=== PATIENT | male | born 2000 | race Caucasian/White ===

== ENCOUNTER 2022-08-09 11:54 | Emergency (ER) | payer MEDICAID ==
[~2022-08-09] VITALS: Ht 170.2 cm; Wt 72.7 kg
--- NOTE | 2022-08-09 13:00 | NUR ---
DR SARMIENTO AT BEDSIDE.
[2022-08-09 13:23] LABS: BASOPHILS % (AUTO) 0.5 % (0-1); EOSINOPHILS % (AUTO) 0.2 % (0-6); HEMOGLOBIN 14.5 g/dl (14.0-17.9); LYMPHOCYTES # (AUTO) 0.9 X10'3 (1.1-4.8); LYMPHOCYTES % (AUTO) 13.4 % (21-51); MEAN CORPUSCULAR HEMOGLOBIN 29.5 PG (27.0-31.0); MEAN CORPUSCULAR HGB CONC 33.6 g/dL (33.0-36.5); MEAN PLATELET VOLUME 8.8 FL (7.4-10.4); MONOCYTES # (AUTO) 0.3 X10'3 (0-0.9); MONOCYTES % (AUTO) 4.5 % (2-12); NEUTROPHILS # (AUTO) 5.8 X10'3 (1.8-7.7); NEUTROPHILS % (AUTO) 81.4 % (42-75); PLATELET COUNT 175 X10'3 (140-440); RED BLOOD COUNT 4.89 X10'6 (4.70-6.10); RED CELL DISTRIBUTION WIDTH 14.3 % (11.5-14.5); WHITE BLOOD COUNT 7.1 X10'3 (4.5-11.0)
--- NOTE | 2022-08-09 13:33 | NUR ---
pt resting in bed quietly .will cont to keep close eye on pt.
[2022-08-09 13:38] LABS: ALANINE AMINOTRANSFERASE 16 U/L (12-78); ALBUMIN 4.4 G/DL (3.4-5.0); ALBUMIN/GLOBULIN RATIO 1.4 (1.1-1.5); ALKALINE PHOSPHATASE 55 IU/L (46-116); ANION GAP 5 (8-16); ASPARTATE AMINO TRANSFERASE 16 U/L (10-37); BILIRUBIN,TOTAL 0.5 MG/DL (0.1-1.0); BLOOD UREA NITROGEN 7 MG/DL (7-18); BUN/CREATININE RATIO 7.8 (5.4-32.0); CALCIUM 8.9 MG/DL (8.5-10.1); CHLORIDE 107 MMOL/L (99-107); GLUCOSE 101 MG/DL (70-104); POTASSIUM 3.5 MMOL/L (3.5-5.1); SODIUM 143 MMOL/L (135-145); TOTAL CARBON DIOXIDE 31.2 MMOL/L (24-32); TOTAL PROTEIN 7.5 G/DL (6.4-8.2); eGFR > 90 ML/MIN
[2022-08-09 13:46] LABS: ETHANOL < 0.010 GM/DL (0.0-0.010)
--- NOTE | 2022-08-09 14:50 | NUR ---
Patient denies suicidal ideation. Patient states "he was running and tripped and fell on his son's toy". RN asked several times about how this happened and patient keeps saying the same thing. Continue to monitor.
[2022-08-09 15:07] LABS: URINE AMPHETAMINE SCREEN NEGATIVE (Neg); URINE BARBITUATE SCREEN NEGATIVE (Neg); URINE BENZODIAZEPINES SCREEN NEGATIVE (Neg); URINE CANNABINOID SCREEN POSITIVE (Neg); URINE COCAINE SCREEN NEGATIVE (Neg); URINE METHADONE SCREEN NEGATIVE (Neg); URINE OPIATE SCREEN NEGATIVE (Neg); URINE PHENCYCLIDINE SCREEN NEGATIVE (Neg)
--- NOTE | 2022-08-09 16:10 | NUR ---
Patient awake and alert. Patient pending evaluation. Continue to monitor.
[2022-08-09 16:26] LABS: CLARITY,URINE CLEAR (Clear); COLOR,URINE YELLOW (Yellow); GLUCOSE, URINE NEGATIVE (Neg); KETONES,URINE NEGATIVE (Neg); LEUKOCYTE ESTERASE ,URINE NEGATIVE (Neg); NITRITES, URINE NEGATIVE (Neg); OCCULT BLOOD,URINE NEGATIVE (Neg); PROTEIN,URINE NEGATIVE (Neg); UROBILINOGEN,URINE 0.2 E.U/dL (0.2-1.0)
[2022-08-09 16:28] LABS: UA COLLECTION TYPE CLN CATCH MIDSTREAM
--- NOTE | 2022-08-09 17:49 | NUR ---
Patient sleeping supine. No distress observed. Continue to monitor.
--- NOTE | 2022-08-09 18:59 | NUR ---
MH coordinator will be keeping him over night due to being unable to contact family members to go over [id number].
--- NOTE | 2022-08-09 19:01 | NUR ---
pt. threating to elope.
--- NOTE | 2022-08-09 19:02 | NUR ---
pt. told that security will be called if he tries to leave.
--- NOTE | 2022-08-09 19:34 | NUR ---
abdulkadir brought pts. phone and vape, put into locker.
[2022-08-09] MEDS ORDERED: nicotine 14mg patch - 24hr TD ONE (19:45)
--- NOTE | 2022-08-09 22:14 | NUR ---
Birgit (Mother)- called. phone number
[2022-08-10 06:10] VITALS: BP 107/65
--- NOTE | 2022-08-10 06:56 | NUR ---
Patient sleeping on left side. Respirations nonlabored. No distress observed. Continue to monitor.
--- NOTE | 2022-08-10 08:12 | NUR ---
Patient's breakfast at bedside. Patient picked at a few bites but left most of his breakfast on the tray. No distress observed. Continue to monitor.
--- NOTE | 2022-08-10 09:18 | NUR ---
Patient sitting up and speaking to his girlfriend on the phone. No distress observed. Continue to monitor.
--- NOTE | 2022-08-10 10:48 | NUR ---
Mya, girlfriend [phone]
== END 2022-08-10 10:45 | disposition home or self-care (01) ==
LOC: ER 11:55
DX: F79 Unspecified intellectual disabilities (principal); Z20.822 Contact with and (suspected) exposure to COVID-19
CPT/HCPCS: 36415; 71045; 80053; 80305; 80320; 81003; 84443; 85025; 87811; 99285